=== PATIENT | female | born 1955 | race Caucasian/White ===

== ENCOUNTER 2021-10-15 10:48 | Outpatient (CLI) | payer MEDICARE, SELFPAY ==
--- NOTE | ~2021-10-15 | CT_ITS ---
EXAMINATION: CT lung screening DATE: 10/15/2021 11:18 INDICATION: Nicotine dependence. Cigarettes. TECHNIQUE: Computed tomography (CT) of the chest was performed without intravenous contrast. The dose -length product was 66.62 mGy-cm. Automated exposure control and iterative reconstruction technique w ere employed. COMPARISON: None FINDINGS: No significant pleural or pericardial effusion. Heart size is normal. No thoracic lymphaden opathy. No significant vascular abnormality. There is mild atherosclerosis of the aorta and coronary arteries. There is a subsolid 3 mm nodule right upper lobe, coronal image 29 there is a subsolid nodu le of the right upper lobe, axial image 67. No focal airspace consolidation to suggest pneumonia. No pneumothorax. No endobronchial lesions. There is a 3 mm left lower lobe nodule, axial image 63. There is dependent atelectasis. Moderate lower thoracic spondylosis. There is scoliosis. IMPRESSION: 1. Lung-RADS category 2: Benign appearance or behavior. Continue annual screening with noncontrast lo w-dose chest CT in 12 months. Reviewed, dictated and finalized at location B. INE CLERICAL VERIFIER IMPRESSION: 1. Lung-RADS category 2: Benign appearance or behavior. Continue annual screeni ng with noncontrast low-dose chest CT in 12 months.
== END 2021-10-15 10:49 | disposition home or self-care (01) ==
LOC: ANHIMG 10:56
PROVIDERS: PCP Internal Medicine; Visit Provider Internal Medicine
DX: Z12.2 Encounter for screening for malignant neoplasm of respiratory organs (principal); F17.210 Nicotine dependence, cigarettes, uncomplicated
CPT/HCPCS: 71271

== ENCOUNTER 2023-04-28 11:20 | Outpatient (CLI) | payer MEDICARE, SELFPAY ==
--- NOTE | ~2023-04-28 | US_ITS ---
US soft tissue head and neck 04/28/2023 11:49 Indication: Localized swelling of the left neck Procedure: High-resolution ultrasound of the left neck Comparison: No prior studies for comparison. Findings: There are multiple normal-appearing lymph nodes of the left neck, largest measuring 11 mm w ith normal fatty hilum. No suspicious masses or fluid collections. Impression: 1: Normal-appearing left cervical lymph nodes with fatty hilum, likely reactive. Reviewed, dictated and finalized at location [] Impression: 1: Normal-appearing left cervical lymph nodes with fatty hilum, likely reactive .
== END 2023-04-28 11:21 ==
PROVIDERS: PCP Family Medicine; Visit Provider Family Medicine
DX: R22.0 Localized swelling, mass and lump, head (principal); R22.1 Localized swelling, mass and lump, neck
CPT/HCPCS: 76536

== ENCOUNTER 2023-04-28 11:41 | Outpatient (CLI) | payer MEDICARE, SELFPAY ==
[2023-04-28 17:18] LABS: Basophils Percent Auto 0.3 % (0.2-1.2); Eosinophils Absolute Auto 0.1 K/mm3 (0-0.3); Eosinophils Percent Auto 1.8 % (0-4.4); Hematocrit 37.1 % (37.0-47.0); Hemoglobin 12.4 g/dL (12.0-15.0); Immature Granulocyte Absolute 0.01 K/mm3 (0.00-0.031); Immature Granulocyte Percent A 0.3 % (0-0.5); Immature Platelet Fraction Pct 3.5 % (0.9-11.2); Lymphocytes Percent Auto 24.5 % (18.3-44.2); Mean Corpuscular HGB Conc 33.4 g/dl (32-36); Mean Corpuscular Hemoglobin 33.7 pg (26-34); Mean Corpuscular Volume 100.8 fl (80-100); Mean Platelet Volume 10.8 fl (7.4-10.4); Monocytes Absolute Auto 0.6 K/mm3 (0.1-0.6); Monocytes Percent Auto 16.9 % (2.6-8.5); Neutrophils Absolute Auto 1.8 K/mm3 (1.3-6.7); Neutrophils Percent Auto 56.2 % (45.5-73.1); Platelet Count Result 69 k/mm3 (150-375); Red Blood Count 3.68 M/mm3 (4.2-5.4); Red Cell Distribution Width 16.5 % (11.5-14.5); White Blood Count 3.3 K/mm3 (4.5-10.0)
[2023-04-28 18:38] LABS: Platelet Estimate Decreased (Adequate)
[2023-04-28 18:39] LABS: Schistocytes None Seen (NORMAL)
[2023-04-28 19:23] LABS: Alanine Aminotransferase 28 U/L (6-35); Albumin Level 3.6 g/dL (3.5-5.1); Alkaline Phosphatase 199 U/L (38-126); Anion Gap 5 mmol/L (8-16); Aspartate Amino Transferase 39 U/L (14-36); Bilirubin,Total 0.8 mg/dL (0.2-1.3); Blood Urea Nitrogen 9 mg/dL (7-17); Calcium 8.4 mg/dL (8.4-10.2); Carbon Dioxide 27 mmol/L (22-30); Chloride 103 mmol/L (98-107); Cholesterol 212 mg/dL (0-200); Estimated Glomerular Filt Rate 45; Glucose 84 mg/dL (65-110); HDL Direct 58 mg/dL; Potassium 3.7 mmol/L (3.4-5.0); Sodium 135 mmol/L (137-145); Triglycerides 95 mg/dL (<150)
[2023-04-28 19:34] LABS: LDL Cholesterol Direct 124 mg/dL
[2023-04-29 02:30] LABS: Free T4 Free Thyroxine Reflex 0.97 ng/dL (0.78-2.19)
[2023-04-29 03:36] LABS: Total Triiodothyronine (T3) 1.49 NG/ML (0.97-1.69)
== END 2023-04-28 11:42 | disposition home or self-care (01) ==
LOC: ANHGOSHLAB 11:42
PROVIDERS: PCP Family Medicine; Visit Provider Family Medicine
DX: E78.5 Hyperlipidemia, unspecified (principal); R53.83 Other fatigue; Z13.228 Encounter for screening for other metabolic disorders; E03.9 Hypothyroidism, unspecified; Z13.29 Encounter for screening for other suspected endocrine disorder
CPT/HCPCS: 36415; 80053; 80061; 84439; 84443; 84480; 85025; 85055

== ENCOUNTER 2023-06-16 14:39 | Outpatient (CLI) | payer MEDICARE, SELFPAY ==
--- NOTE | ~2023-06-16 | XR_ITS ---
EXAMINATION: XR ankle RT min 3V DATE: 06/16/2023 15:00 INDICATION: Right ankle pain. Fall. TECHNIQUE: 4 views of right ankle were obtained. COMPARISON: Right foot radiographs 03/06/2018 FINDINGS: There is a transverse fracture of medial malleolus in near-anatomic alignment. Joint spaces are normal. There is an enthesophyte at posterior aspect of calcaneal tuberosity. Ankle soft tissue swelling is noted. IMPRESSION: 1. Nondisplaced transverse fracture of medial malleolus. Reviewed, dictated and finalized at location L.
== END 2023-06-16 14:40 ==
PROVIDERS: PCP Family Medicine; Visit Provider Family Medicine
DX: S82.54XA Nondisplaced fracture of medial malleolus of right tibia, initial encounter for closed fracture (principal); T14.90XA Injury, unspecified, initial encounter
CPT/HCPCS: 73610

== ENCOUNTER 2023-08-15 15:32 | Outpatient (CLI) | payer MEDICARE, SELFPAY ==
[2023-08-15 20:51] LABS: Vitamin D 25 Hydroxy < 12.8 ng/mL
[2023-08-15 22:35] LABS: Free T4 Free Thyroxine Reflex 1.09 ng/dL (0.78-2.19)
[2023-08-15 23:15] LABS: Total Triiodothyronine (T3) 1.53 NG/ML (0.97-1.69)
== END 2023-08-15 15:33 | disposition home or self-care (01) ==
LOC: ANHGOSHLAB 15:36
PROVIDERS: PCP Family Medicine; Visit Provider Family Medicine
DX: E03.9 Hypothyroidism, unspecified (principal); E55.9 Vitamin D deficiency, unspecified
CPT/HCPCS: 36415; 82306; 84439; 84443; 84480

== ENCOUNTER 2023-09-16 13:45 | Outpatient (CLI) | payer MEDICARE, SELFPAY | END 2023-09-16 13:46 | disposition home or self-care (01) | LOC: ANHAUDIO 13:46 | PROVIDERS: PCP Family Medicine; Visit Provider Family Medicine | DX: H90.3 Sensorineural hearing loss, bilateral (principal) | CPT/HCPCS: 92557; 92567 ==

== ENCOUNTER 2023-10-18 13:53 | Outpatient (CLI) | payer MEDICARE, SELFPAY ==
[2023-10-18 20:07] LABS: Free T4 Free Thyroxine 2.06 ng/mL (0.78-2.19)
== END 2023-10-18 13:54 | disposition home or self-care (01) ==
PROVIDERS: PCP Family Medicine; Visit Provider Family Medicine
DX: E03.9 Hypothyroidism, unspecified (principal)
CPT/HCPCS: 36415; 84439; 84443

== ENCOUNTER 2024-01-16 14:05 | Outpatient (RCR) | payer MEDICARE, SELFPAY | END 2024-01-16 23:59 | disposition home or self-care (01) | LOC: ANHAUDIO 14:05 | PROVIDERS: PCP Family Medicine; Visit Provider Family Medicine | DX: Z46.1 Encounter for fitting and adjustment of hearing aid (principal) | CPT/HCPCS: V5261 ==

== ENCOUNTER 2024-03-13 09:11 | Emergency (ER) | payer MEDICARE, SELFPAY ==
--- NOTE | 2024-03-13 09:24 | ED.URI ---
HPI - URI/Sore Throat General Chief Complaint: Upper Respiratory Infection Stated Complaint: Sinus Time Seen by Provider: 03/13/24 09:43 Source: patient and RN notes reviewed Mode of arrival: ambulatory Limitations: no limitations History of Present Illness HPI Narrative: 68-year-old female presents concern for several week history of cough, sore throat, left-sided nasal congestion. Reports general malaise, fever. Reports she has tried spla-bii-cctzjiq remedies without relief. MD elicited complaint: cough and sore throat Related Data Home Medications Medication Instructions Recorded Confirmed methotrexate sodium 2.5 mg tablet 17.5 mg PO WEEKLY 08/15/23 02/14/24 Allergies Allergy/AdvReac Type Severity Reaction Status Date / Time No Known Allergies Allergy Verified 03/13/24 09:18 Review of Systems Review of Systems: CONSTITUTIONAL: Reports malaise, fever. EYES: Denies visual changes, redness, or discharge. ENT: Reports rhinorrhea, congestion, sinus pain, otalgia and sore throat. CARDIOVASCULAR: Denies chest pain, palpitations, or edema. RESPIRATORY: Reports cough. Denies dyspnea. GASTROINTESTINAL: Denies abdominal pain, nausea, vomiting, diarrhea SKIN: Denies rash or itching. MUSCULOSKELETAL: Reports myalgia. NEUROLOGIC: Reports headache. All systems reviewed & are unremarkable except as noted in HPI and below PMFSH Past Medical History Medical History Anxiety Broken ankle Right Depression Surgical History Surgical History History of hysterectomy Family History Family History Sibling Family history of migraine headaches Other Depression Family history of gynecological problem Family history of mental disorder Social History Social History Smoking status: Former smoker Tobacco type: cigarettes Second hand tobacco smoke exposure: Yes Smoking end date: 01/10/23 Alcohol intake: former Substance use: current Substance use type: marijuana Lack of Transportation: No Lack of Food: Never True Current Housing: I Have Housing Concerned About Future Housing: No Difficulty Paying Gas/Electric Bills: No Difficulty Paying for Meds: No Currently Unemployed: No Education: High School Diploma/GED Difficulty w/ Childcare or Family Care: No Living arrangements: with family Comments At time of signature, agree with nursing past medical, surgical, social and family history. There is no relevant family history pertinent to the presenting complaint Exam Narrative: GENERAL: Well-appearing, well-nourished, and in no acute distress. HEAD: Normocephalic EYES: PERRLA, conjunctivae clear ENT: Nares clear, turbinates edematous and erythematous. Mucous membranes moist. TM pearly hernandez with dull light reflex bilaterally; no tragal tenderness. Oropharynx not erythematous without lesions. Tonsils not enlarged and without exudate, no drooling, no hoarseness, no trismus, uvula midline. NECK: Supple. No lymphadenopathy CHEST: Clear to auscultation, breath sounds equal. No wheezing, rhonchi, rales, or stridor. No respiratory distress, speaks in full sentences. HEART: Regular rate and rhythm. No murmur heard. SKIN: Warm, dry, no rash. NEURO: Alert and oriented x3. PSYCH: Normal mood and affect Course Course Emergency Course: Patient is aware of diagnosis, understands and agrees to treatment plan. Anticipatory guidance given. Patient agrees to follow-up as directed and is aware of reasons to seek care at the emergency department. Portions of this record may have been created with voice recognition software Level of Care: Express Care Visit Vital Signs Vital signs: Reviewed. MDM - URI/Sore Throat MDM Narrative Medical decision making narrative: Differential
[2024-03-13 09:27] VITALS: BP 135/98; PULSE 104; RESP 16; TEMP 37.5; O2SAT 99
== END 2024-03-13 09:55 | disposition home or self-care (01) ==
PROVIDERS: Emergency Provider Nurse Practitioner; PCP Family Medicine
DX: J32.9 Chronic sinusitis, unspecified (principal); J40 Bronchitis, not specified as acute or chronic; Z87.891 Personal history of nicotine dependence; F12.90 Cannabis use, unspecified, uncomplicated
CPT/HCPCS: 99213; G0463

== ENCOUNTER 2024-06-14 08:15 | Outpatient (CLI) | payer MEDICARE, SELFPAY ==
--- NOTE | ~2024-06-14 | DEXA_ITS ---
Bone Density Report Name: MARIA ELENA MOON Age: 68 Sex: Female Ethnicity: White Date of : 1955 Indication: postmenopausal; screening for osteoporosis; history of glucocorticoids; hysterectomy; rheumatoid arthritis; Referring Provider: DORYS BRAMBILA Study: Bone densitometry was performed. Exam Date: June 14, 2024 Accession number: [id number] Bone Density: Region BMD T-score Z-score Classification AP Spine(L1-L4) 1.043 0.0 2.1 Normal Femoral Neck (Left) 0.661 -1.7 0.1 Osteopenia Total Hip (Left) 0.799 -1.2 0.3 Osteopenia Femoral Neck (Right) 0.650 -1.8 0.0 Osteopenia Total Hip (Right) 0.816 -1.0 0.5 Normal Total Hip Mean 0.808 -1.1 0.4 Osteopenia World Health Organization criteria for BMD impression classify patients as: Normal (T-score at or above -1.0), Osteopenia (T-score between -1.0 and -2.5), or Osteoporosis (T-score at or below -2.5). 10-year Fracture Risk(1): Major Osteoporotic Fracture 20% Hip Fracture 4.4% Reported Risk Factors: [place] (), Neck BMD=0.650, BMI=23.4, glucocorticoids, rheumatoid arthritis (1) FRAX(R) Version 3.08. Fracture probability calculated for an untreated patient. Fracture probability may be lower if the patient has received treatment. Clinical Information Provided by Patient: Has taken Glucocorticoids Has rheumatoid arthritis Has used the following medications: Vitamin D, Calcium Has the following medical conditions: Hysterectomy Patient maximum height was 64.5 Menopause Age: 49 No regular weight bearing exercise Drinks caffeinated beverages Onset of menses at age 11 Number of children 3 Impression: The patient has low bone mass, based on the Right Femoral Neck T-score. The patient has an estimated ten-year risk of hip fracture of 4.4% and an estimated ten-year risk of major fracture of 20%, based on the WHO FRAX algorithm. The patient has risk factors, including: history of glucocorticoid therapy. Discussion: BONE DENSITY IS LOW AT ONE OR MORE SKELETAL SITES. THE PATIENT'S BMD AND CLINICAL RISK FACTORS CONTRIBUTE TO THIS PATIENT'S HIGH RISK OF FRACTURE. This patient's lowest T-score is low at one or more skeletal sites. It meets the World Health Organization's (WHO) criteria for ?low bone mass? (T-score between -1.0 and -2.5). The patient's 10-year risk of hip fracture and 10 year risk of a major osteoporotic fracture as calculated by FRAX exceeds the threshold where pharmacological therapy is recommended by the National Osteoporosis Foundation (NOF). However, all treatment decisions require clinical judgment and consideration of individual patient factors, including patient preferences, comorbidities, previous drug use, risk factors not captured in the FRAX model (e.g., frailty, falls, vitamin D deficiency, increased bon
--- NOTE | ~2024-06-14 | MM_ITS ---
EXAMINATION: MM screening rashaad BI w holly HISTORY: Screening TECHNIQUE: Craniocaudal and mediolateral oblique 3-D tomosynthesis images were obtained and synthetic 2-D images were generated. CAD analysis was submitted and interpreted. COMPARISON: No prior mammogram is available for comparison at this institution. BREAST PARENCHYMAL COMPOSITION: There are scattered areas of fibroglandular density. FINDINGS: There is no evidence of suspicious mass, calcification, or architectural distortion to sugg est malignancy in either breast. There has been no suspicious interval change. IMPRESSION: 1. No mammographic evidence of malignancy. 2. Recommend routine screening mammography in one year. BI-RADS Category 1: Negative Reviewed, dictated and finalized at location B.
== END 2024-06-14 08:16 | disposition home or self-care (01) ==
PROVIDERS: PCP Family Medicine; Visit Provider Family Medicine
DX: Z12.31 Encounter for screening mammogram for malignant neoplasm of breast (principal); M81.0 Age-related osteoporosis without current pathological fracture; M85.852 Other specified disorders of bone density and structure, left thigh; M85.851 Other specified disorders of bone density and structure, right thigh
CPT/HCPCS: 77063; 77067; 77080

== ENCOUNTER 2025-01-21 09:26 | Outpatient (CLI) | payer MEDICARE, SELFPAY ==
[2025-01-21 10:01] LABS: Hematocrit 39.8 % (37.0-47.0); Hemoglobin 13.1 g/dL (12.0-15.0); Immature Platelet Fraction Pct 2.1 % (0.9-11.2); Mean Corpuscular HGB Conc 32.9 g/dl (32-36); Mean Corpuscular Volume 97.1 fl (80-100); Mean Platelet Volume 10.1 fl (7.4-10.4); Platelet Count Result 102 k/mm3 (150-375); Red Cell Distribution Width 17.6 % (11.5-14.5); White Blood Count 4.6 K/mm3 (4.5-10.0)
[2025-01-21 10:23] LABS: LDL Cholesterol Direct 91 mg/dL
[2025-01-21 10:35] LABS: Alanine Aminotransferase 17 U/L (6-35); Albumin Level 3.9 g/dL (3.5-5.1); Alkaline Phosphatase 213 U/L (38-126); Anion Gap 9 mmol/L (4-12); Aspartate Amino Transferase 39 U/L (14-36); Bilirubin,Total 1.5 mg/dL (0.2-1.3); Blood Urea Nitrogen 15 mg/dL (7-17); Calcium 8.8 mg/dL (8.4-10.2); Carbon Dioxide 23 mmol/L (22-30); Chloride 107 mmol/L (98-107); Cholesterol 207 mg/dL (0-200); Estimated Glomerular Filt Rate 54; Glucose 94 mg/dL (65-110); HDL Direct 79 mg/dL; Potassium 4.1 mmol/L (3.4-5.0); Sodium 139 mmol/L (137-145); Triglycerides 78 mg/dL (<150)
--- OUTSIDE RECORDS SUMMARY | 2025-01-21 10:35 | XMS_ITS | Encounter Summary ---
Author Organization [employer] Address 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
--- OUTSIDE RECORDS SUMMARY | 2025-01-21 10:35 | XMS_ITS | Clinical Summary ---
Author Organization [employer] [facility] Address [address] 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
--- OUTSIDE RECORDS SUMMARY | 2025-01-21 10:35 | XMS_ITS | Encounter Summary ---
Author Organization [facility] Address 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
[2025-01-21 10:41] LABS: Thyroid Stimulating Hormone 0.713 uIU/mL (0.465-4.680)
[2025-01-21 11:12] LABS: Free T4 Free Thyroxine 1.68 ng/dL (0.78-2.19)
== END 2025-01-21 09:27 | disposition home or self-care (01) ==
PROVIDERS: PCP Family Medicine; Visit Provider Family Medicine
DX: E78.49 Other hyperlipidemia (principal); R73.9 Hyperglycemia, unspecified; E03.9 Hypothyroidism, unspecified; F33.2 Major depressive disorder, recurrent severe without psychotic features
CPT/HCPCS: 36415; 80053; 80061; 84439; 84443; 85027; 85055

== ENCOUNTER 2025-01-28 12:16 | Outpatient (CLI) | payer MEDICARE, SELFPAY ==
--- NOTE | ~2025-01-28 | MMUS_ITS ---
EXAMINATION: MM diagnostic rashaad LT w holly, US breast LT limited HISTORY: Palpable left breast abnormality. TECHNIQUE: Additional 3-D tomosynthesis images of the left breast were performed and synthetic 2-D im ages were generated. CAD analysis was submitted and interpreted. High resolution Limited left breast ultrasound was performed. COMPARISON: 06/14/2024 BREAST PARENCHYMAL COMPOSITION: Not dense: There are scattered areas of fibroglandular density. FINDINGS: MAMMOGRAPHIC FINDINGS: There is a new focal asymmetry in the upper central aspect of the left breast in the area of palpable concern. There are benign-appearing left breast calcifications. No architectural distortion. ULTRASOUND: Limited left breast ultrasound: At 11:00, 4 cm from the nipple there is an irregular shaped parallel oriented hyperechoic mass with internal fluid measuring 1.4 x 1.1 x 0.5 cm located in the superficial soft tissues. There is internal vascularity along the margin. No significant posterior features. IMPRESSION: 1. New focal asymmetry of the left breast with corresponding superficial mass at 11:00, 4 cm from the nipple measuring 1.4 cm. 2. Ultrasound-guided left breast biopsy recommended. BI-RADS category 4, suspicious findings. Reviewed, dictated and finalized at location B. IMPRESSION: 1. New focal asymmetry of the left breast with corresponding superficial mass a t 11:00, 4 cm from the nipple measuring 1.4 cm. 2. Ultrasound-guided left breast biopsy recommended. BI-RADS category 4, suspicious findings.
--- OUTSIDE RECORDS SUMMARY | 2025-01-28 14:38 | XMS_ITS | Clinical Summary ---
Author Organization [facility] [facility] Address [address] 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
--- OUTSIDE RECORDS SUMMARY | 2025-01-28 14:38 | XMS_ITS | Encounter Summary ---
Author Organization [facility] Address 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
--- OUTSIDE RECORDS SUMMARY | 2025-01-28 14:38 | XMS_ITS | Encounter Summary ---
Author Organization [employer] Address 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
== END 2025-01-28 12:17 | disposition home or self-care (01) ==
LOC: ANHIMG 12:18
PROVIDERS: PCP Family Medicine; Visit Provider Family Medicine
DX: N63.24 Unspecified lump in the left breast, lower inner quadrant (principal); N63.22 Unspecified lump in the left breast, upper inner quadrant; R92.8 Other abnormal and inconclusive findings on diagnostic imaging of breast
CPT/HCPCS: 76642; 77061; 77065; G0279

== ENCOUNTER → 2025-10-28 08:47 | Outpatient (CLI) | payer MEDICARE, SELFPAY ==
--- NOTE | ~2025-10-28 | XR_ITS ---
EXAMINATION: XR foot LT 2V, 10/28/2025 9:15 LOST CHARGE CARD CLERK HISTORY: RA COMPARISON: No comparisons available. Findings: No acute fracture or malalignment. No significant degenerative changes. Soft tissues unremarkable. Impression: No acute fracture or malalignment. Reviewed, dictated and finalized at location P. CHARGE CARD CLERK Impression: No acute fracture or malalignment.
--- NOTE | ~2025-10-28 | XR_ITS ---
EXAMINATION: XR foot RT 2V, 10/28/2025 9:15 TURF FARMER HISTORY: RA COMPARISON: No comparisons available. Findings: Proximal phalanx of the fifth digit appears subluxed medially. No acute fracture is identified Moderate Achilles enthesopathy. Moderate degenerative changes of the first metatarsal phalangeal joint. Soft tissues unremarkable. Impression: Degenerative changes detailed above. Reviewed, dictated and finalized at location P. FARMER Impression: Degenerative changes detailed above.
--- NOTE | ~2025-10-28 | XR_ITS ---
EXAMINATION: XR hand BI arthritis min 3V, 10/28/2025 9:15 SUSTAINABILITY EXECUTIVE DIRECTOR HISTORY: RA COMPARISON: No comparisons available. Findings: No acute fracture or malalignment. There are moderate to severe degenerative changes of the distal and proximal interphalangeal joints as well as the first metacarpal carpal joints and the second and third metacarpophalangeal joints bilaterally with tiny erosions. Soft tissues unremarkable. Impression: No acute fracture or malalignment. Reviewed, dictated and finalized at location P. AINABILITY EXECUTIVE DIRECTOR Impression: No acute fracture or malalignment.
== END ==
PROVIDERS: PCP Family Medicine; Visit Provider Internal Medicine
DX: M19.042 Primary osteoarthritis, left hand (principal); M19.041 Primary osteoarthritis, right hand; M19.072 Primary osteoarthritis, left ankle and foot; M19.071 Primary osteoarthritis, right ankle and foot; S63.206A Unspecified subluxation of right little finger, initial encounter; X58.XXXA Exposure to other specified factors, initial encounter; M76.61 Achilles tendinitis, right leg
CPT/HCPCS: 73130; 73620

== ENCOUNTER 2025-10-30 08:53 | Outpatient (CLI) | payer MEDICARE, SELFPAY ==
--- NOTE | ~2025-10-30 | CT_ITS ---
EXAM/PROCEDURE: CT abdomen pelvis wo con HISTORY: Diarrhea, unspecified weight loss COMPARISON: None available. TECHNIQUE: Noncontrast CT of abdomen and pelvis FINDINGS: The bowel gas pattern is nonobstructive with no free air or pneumatosis. Small amount of free fluid is present in the lower pelvis. Loops of the jejunum in the left hemiabdomen may have mild wall thickening such as seen on images 37 through 41 of series 2. 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 No periaortic hematoma or fluid identified. No gross CT evidence of acute cholecystitis pancreatitis or appendicitis. Small to moderate amount of stool extends to the cecum. No hydroureteronephrosis. Spleen stomach and liver and adrenal glands appear within normal limits for technique. Diffuse degenerative changes throughout the bones. Minimal fibrotic changes in the lung bases which are otherwise clear. Heart size normal. IMPRESSION: Directed noncontrast exam with no acute surgical abnormality identified; there is a small amount of free fluid in the lower pelvis, and possible small bowel wall thickening which could be associated with inflammatory or infectious enteritis. Other chronic appearing findings as above. Reviewed, dictated and finalized at location A. CTURAL MANAGER IMPRESSION: Directed noncontrast exam with no acute surgical abnormality identified; there is a small amount of free fluid in the lower pelvis, and possible small bowel w all thickening which could be associated with inflammatory or infectious enteri tis. Other chronic appearing findings as above.
== END 2025-10-30 08:54 | disposition home or self-care (01) ==
LOC: MICIMG 08:53
PROVIDERS: PCP Family Medicine; Visit Provider Family Medicine
DX: R19.7 Diarrhea, unspecified (principal); R63.4 Abnormal weight loss; Z68.20 Body mass index [BMI] 20.0-20.9, adult
CPT/HCPCS: 74176